=== PATIENT | male | born 1960 | race Caucasian/White ===

== ENCOUNTER → 2020-04-25 | Outpatient (CLI) | payer OTHER | LOC: SJCVCIMAG 16:14 | PROVIDERS: ATTEND Internal Medicine Cardiovascular Disease | DX: I49.1 Atrial premature depolarization (principal); I10 Essential (primary) hypertension; Z82.49 Family history of ischemic heart disease and other diseases of the circulatory system ==

== ENCOUNTER → 2020-05-08 | Outpatient (CLI) | payer OTHER | LOC: CAT 11:49 | PROVIDERS: ATTEND Internal Medicine | DX: Z13.6 Encounter for screening for cardiovascular disorders (principal); I25.10 Atherosclerotic heart disease of native coronary artery without angina pectoris; E78.00 Pure hypercholesterolemia, unspecified ==

== ENCOUNTER 2020-11-21 07:40 | Observation (INO) | payer OTHER ==
[~2020-11-21] VITALS: Ht 180.3 cm; Wt 76.2 kg
[~2020-11-21 07:40] MED LIST: ASA81BEC PO; ATORVASTATIN CA20 MG PO; FLEXERIL PO; LOSARTAN POTAS100 MG PO; MULTI VITAMIN1 EACH PO
[2020-11-21 09:01] VITALS: BP 123/63
[2020-11-21] MEDS ORDERED: HYDROCODON-ACE1 EAC7 PO (11:57)
[2020-11-21 14:13] VITALS: BP 147/86; BP 156/87
[2020-11-21 17:04] VITALS: BP 147/86
[2020-11-21 17:10] VITALS: BP 134/76
[2020-11-21 18:45] VITALS: BP 145/81
--- NOTE | 2020-11-24 11:08 | O ---
[facility] [place] [address] [place] [address] OPERATIVE REPORT Name: TEJAS OROURKE Room #: 439-P NISA Contreras#: [id number] Admission: 11/21/20 Attend Phys: Simon Milligan MD Discharge: 11/21/20 Date of : 58 Report #: [id number] THIS REPORT FOR: cc: Lance Silva MD, Christopher B. MD Chu, Peter Y. MD ~ DOC #: [id number] cc: MD Simon Pacheco MD DATE OF SERVICE: 11/21/2020 PREOPERATIVE DIAGNOSES: Cholecystitis with cholelithiasis, umbilical hernia. POSTOPERATIVE DIAGNOSES: Cholecystitis with cholelithiasis, umbilical hernia. PROCEDURE PERFORMED: Laparoscopic cholecystectomy with intraoperative cholangiogram, repair of umbilical hernia. SURGEON: Simon Milligan MD ANESTHESIA: General. COMPLICATIONS: None. BLOOD LOSS: 15 mL DESCRIPTION OF PROCEDURE: With the patient under general anesthesia, abdomen was prepped and draped in sterile fashion. IV antibiotic was administered. A timeout was performed. 0.25% Marcaine was used to anesthetize the skin. An approximately 3 cm incision was made infraumbilically. Skin of the umbilicus was lifted off the fascia. There is an umbilical fascial defect measuring about a centimeter. The patient had a small hernia sac, this was opened. Abdominal cavity was visualized. The upper fascia was also free. 0 Vicryl suture placed on the fascial edges for retraction. An 11 mm trocar was placed directly under visualization through the peritoneum/hernia sac. Abdominal cavity was insufflated with CO2 through the 11 mm trocar. Two 5 mm trocars were placed in the right upper quadrant and the 5 mm trocar was placed in the epigastrium. The patient was placed in reverse Trendelenburg position, right side tilted up. Gallbladder was identified. Gallbladder was lifted over the liver. There is adhesion over the proximal part of the gallbladder. These are chronic adhesions likely from the gallbladder inflammation. Adhesions were taken down with cautery and blunt dissection. Peritoneum was dissected free laterally and medially. The cystic duct area was contained some fibrosis around it consistent with inflammation. Cystic duct was able to be isolated. Clip was placed in the junction of cystic duct to the gallbladder. Opening was made in the cystic [address] [address] OPERATIVE REPORT Name: MANISHCASETEJAS MCFARLAND Room #: 439-P NISA Contreras#: [id number] Admission: 11/21/20 Attend Phys: Simon Milligan MD Discharge: 11/21/20 Date of : 58 Report #: [id number] duct. Cholangiogram catheter was placed. Looking medially, I can see where the common duct is located. Fluoroscopic cholangiogram was obtained. Contrast was injected through the Taut catheter. The cholangiogram catheter was identified in the cystic duct. No harm to the common duct. The common duct filled out well with no filling defect identified. The dye flowed readily into the duodenum. Cholangiogram catheter was then removed. The proximal cystic duct was then clipped x2 and then divided. This artery was found adjacent to this. This was isolated, clipped x2 proximally, one distally and then divided. There was a small posterior branch that was also isolated, clipped x2 proximally, one distally and divided. Gallbladder was freed from the liver bed. Along the edges of the gallbladder, it was difficult to get a separation of the gallbladder and the liver bed was identified and a small oozing was noted. The rest of the gallbladder did have a space that would allow dissection of the gallbladder off the liver bed. Gallbladder was freed, placed in a specimen bag. This was retrieved through the umbilical hernia port site, which came out easily. Gallbladder was opened off the field. The patient had three pretty large sized gallstones. The bile really was sludgy with sediments. It was checked. Surgicel was placed over the bed of the gallbladder. Some oozing was identified in the fatty tissue that was adhesed to the gallbladder. This was clipped and controlled. Surgicel was placed over that. No bleeding was identified. Irrigation was performed. Irrigation was aspirated out. Hemostasis was obtained. Trocars were then removed. CO2 was evacuated as much as possible. The umbilical fascia defect was then cleaned off and then closed with 0 PDS [id number] x2. Skin was tacked back down to the fascial level with 5-0 PDS. Skin was closed with 5-0 PDS in a subcuticular fashion. Steri-Strips were applied. Band-Aid was used for dressing. The patient tolerated the procedure well. Simon Milligan MD PYC/SAVANNAH <ELECTRONICALLY SIGNED> By: Simon Milligan MD 11/24/20 1108 12 41 Simon Milligan MD /nt
--- NOTE | 2020-11-24 19:06 | PATH ---
[facility] [place] [address] [place] [address] PATHOLOGY RPT PROCEDURE Name: TEJAS OROURKE Room #: 439-P NISA Contreras#: [id number] Admission: 11/21/20 Date of : 58 Discharge: 11/21/20 Report #: [id number] Path Case #: [id number] [facility] Accession Number: [id number] . 01 Material submitted: . gallbladder - GALLBLADDER . 01 Clinical history: . LAPAROSCOPIC CHOLECYSTECTOMY WITH G HERNIA REPAIR, UMBILICAL GALLBLADDER DISEASE WITH STONES . 02 Diagnosis: Gallbladder, cholecystectomy: - Moderate acute and chronic cholecystitis. - Cholelithiasis. - Incidental reactive lymph node. (IUV:[place];11/24/2020) QMS 11/24/2020 1637 Local . 02 Electronically signed: . Di Vela MD, Pathologist NPI- [id number] . 01 Gross description: . Fixative: Formalin Labeled: Gallbladder Specimen received: Previously opened cholecystectomy specimen Dimensions: 6.3 x 4.0 x 1.7 cm Serosa: Green-edwards and smooth Lymph node: Yes, one possible lymph node is identified adjacent to the cystic neck measuring 0.5 cm in greatest dimension Mucosa: Edwards-green and velvety Average wall thickness: 0.2 cm Calculi: Yes, multiple red-brown roughened calculi are present within the container measuring in aggregate 3.6 x 2.5 x 1.5 cm and ranging from 1.6-2.0 cm in greatest dimension Abnormalities: None identified A1- Database Report Writer body, fundus, and the cystic duct margin A2- Possible lymph node, serially sectioned. ([facility] [place]; 11/23/2020) [facility] 11/23/2020 1212 Local . 02 Pathologist provided ICD-10: K80.12 . 02 CPT . [address] [place] [id number] PATHOLOGY RPT PROCEDURE Name: TEJAS OROURKE Room #: 439-P NISA Contreras#: [id number] Admission: 11/21/20 Date of : 58 Discharge: 11/21/20 Report #: [id number] Path Case #: [id number] Specimen Comment: A courtesy copy of this report has been sent to [phone] Specimen Comment: [phone] Specimen Comment: Report sent to / DR CALLEJAS Performed at: [address] [facility] [address], [place], [place] [id number] MD Gilberto Berman MD Phone: [phone] Performed at: [address] [id number] MD Di Vela MD Phone: [phone]
== END 2020-11-21 19:26 | disposition home or self-care (01) ==
LOC: OR 07:40 → EDSTATUS 10:02 → OR 10:09 → 4S 13:20 → OR 17:20 → 4S 19:26
PROVIDERS: ADMIT Surgery; ATTEND Surgery
DX: K80.10 Calculus of gallbladder with chronic cholecystitis without obstruction (principal); K42.9 Umbilical hernia without obstruction or gangrene; Z20.822 Contact with and (suspected) exposure to COVID-19; Z79.82 Long term (current) use of aspirin; Z79.899 Other long term (current) drug therapy
CPT/HCPCS: 50010; 50101; 58574